=== PATIENT | female | born 1960 ===

== ENCOUNTER 2017-05-14 10:27 | Observation (INO) | payer SELFPAY ==
[2017-05-14] MEDS ORDERED: Sodium Chloride 0.9% 1,000 ML IV ONE ×2 (10:48→11:45)
[2017-05-14] MEDS ORDERED: Sodium Chloride 0.9% 1,000 ML ONE ×2 (11:03→11:55)
[2017-05-14 11:05] LABS: BASO # 0.1 K/uL (0.0-0.2); BASO % 1.1 % (0.0-2.0); EOS # 0.1 K/uL (0.0-0.7); EOS % 1.1 % (0.0-4.0); HEMATOCRIT 40.1 % (34.0-47.0); LYMPH % 16.6 % (20.0-40.0); MEAN CELL VOLUME 79.2 fL (81.0-99.0); MEAN CORPUSCULAR HEMOGLOBIN 26.3 pg (27.0-31.0); MEAN CORPUSCULAR HGB CONC 33.2 g/dL (33.0-37.0); MEAN PLATELET VOLUME 8.1 fL (7.2-11.7); MONO # 0.5 K/uL (0.0-0.8); RED CELL DISTRIBUTION WIDTH 14.1 % (11.5-14.5); WHITE BLOOD COUNT 6.1 K/uL (4.8-10.8)
[2017-05-14 11:13] LABS: CHLORIDE 98 mmol/L (98-107); INR 0.9
[2017-05-14 11:14] LABS: SODIUM 134 mmol/L (132-148)
[2017-05-14 11:16] LABS: ALB/GLOB RATIO 1.3 (1.0-2.1); AST/SGOT 19 U/L (14-36); BILIRUBIN,TOTAL 0.6 mg/dL (0.2-1.3); CARBON DIOXIDE 22 mmol/L (22-30); GFR AFRICAN-AMERICAN > 60; TOTAL PROTEIN 7.5 g/dL (6.3-8.3)
[2017-05-14 11:17] LABS: ALKALINE PHOSPHATASE 159 U/L (38-126); ALT/SGPT 30 U/L (9-52); BLOOD UREA NITROGEN 16 mg/dL (7-17); CALCIUM 9.7 mg/dl (8.6-10.4)
--- NOTE | 2017-05-14 11:25 | RAD ---
PROCEDURE: CHEST RADIOGRAPH, 1 VIEW HISTORY: Chest pain COMPARISON: The lungs are clear. FINDINGS: LUNGS: Clear. PLEURA: No pneumothorax or pleural fluid seen. CARDIOVASCULAR: Normal. OSSEOUS STRUCTURES: No significant abnormalities. VISUALIZED UPPER ABDOMEN: Normal. OTHER FINDINGS: None. IMPRESSION: No active pulmonary disease.
[2017-05-14 11:40] LABS: GLUCOSE,RANDOM 564 mg/dL (65-105)
[2017-05-14] MEDS ORDERED: (Novolin R) Insulin Human Regular 100 units/ml vial IV ONE (11:44)
[2017-05-14] MEDS ORDERED: (Novolin R) Insulin Human Regular 100 units/ml vial ONE (11:55)
--- NOTE | 2017-05-14 11:55 | C.PDOC ---
History Of Present Illness 56-year-old female, PMHx includes Diabetes, is brought to the emergency department by ambulance, with complaints of sub-sternal chest pain, which is described as a cramping sensation, that started this morning after an argument with family member. Patient was given Aspirin and sublingual Nitro on field. Patient notes a Hx of similar episode 2 months ago. States she was admitted to hospital and diagnosed with "ACS." Patient also had a stress done, which was "normal." Patient is currently complaining of a headache. Denies shortness of breath, cough, fever, nausea/vomiting, visual changes, arm weakness/numbness, or any other associated symptoms. No other complaints at this time. Of note, patient is visiting from [place]. Time Seen by Provider: 05/14/17 10:31 Chief Complaint (Nursing): Chest Pain History Per: Patient History/Exam Limitations: no limitations Onset/Duration Of Symptoms: Hrs Current Symptoms Are (Timing): Better Severity: Moderate Associated Symptoms: Other (Headache) Past Medical History Reviewed: Historical Data, Nursing Documentation, Vital Signs Vital Signs: Last Vital Signs Temp 97.7 F 05/14/17 10:37 Pulse 77 05/14/17 13:12 Resp 14 05/14/17 13:12 BP 153/81 H 05/14/17 13:12 Pulse Ox 99 05/14/17 13:56 Surgical History: Appendectomy Family History: States: No Known Family Hx - Social History Hx Alcohol Use: No Hx Substance Use: No - Immunization History Hx Tetanus Toxoid Vaccination: No Hx Influenza Vaccination: No Hx Pneumococcal Vaccination: No Review Of Systems Except As Marked, All Systems Reviewed And Found Negative. Constitutional: Negative for: Fever, Chills Cardiovascular: Positive for: Chest Pain Respiratory: Negative for: Shortness of Breath Gastrointestinal: Negative for: Nausea, Vomiting Musculoskeletal: Negative for: Back Pain Neurological: Positive for: Headache. Negative for: Weakness, Numbness, Dizziness Physical Exam - Physical Exam Appears: Non-toxic, No Acute Distress, Other (Comfortable) Skin: Warm, Dry, No Rash Eye(s): bilateral: Normal Inspection, PERRL, EOMI Nose: Normal Oral Mucosa: Moist Lips: Normal Appearing Neck: Normal ROM Chest: Symmetrical Cardiovascular: Rhythm Regular, No Murmur Respiratory: Normal Breath Sounds, No Accessory Muscle Use Gastrointestinal/Abdominal: Soft, No Tenderness Extremity: Normal ROM Neurological/Psych: Oriented x3 ED Course And Treatment - Laboratory Results Result Diagrams: 05/14/17 11:01 05/14/17 11:01 ECG: Interpreted By Me, Viewed By Me ECG Rhythm: Sinus Rhythm ECG Interpretation: No Acute Changes Rate From EC O2 Sat by Pulse Oximetry: 99 (RA) Pulse Ox Interpretation: Normal - Other Rad CXR X-Ray: Viewed By Me, Read By Radiologist Interpretation: Accession No. : [id number]. Patient Name / ID : ADRIAN DELAFIELD / [id number]. Exam Date : 05/14/2017 10:51:35 ( Approved ). Study Comment : Sex / Age : F / [id number]. Creator : NOREEN PEARSON. Dictator : EMIL MEDRANO MD. Furnace Caretaker : Client Sales And Service Officer : EMIL MEDRANO MD. Approver2 : Report Date : 2016 11:04:00. My Comment : . PROCEDURE: CHEST RADIOGRAPH, 1 VIEW. HISTORY: Chest pain. COMPARISON: The lungs are clear. FINDINGS: LUNGS: Clear. PLEURA: No pneumothorax or pleural fluid seen. CARDIOVASCULAR: Normal. OSSEOUS STRUCTURES: No significant abnormalities. VISUALIZED UPPER ABDOMEN: Normal. OTHER FINDINGS: None. IMPRESSION: No active pulmonary disease. Progress Note: EKG, Bloodwork, Chest X-Ray and fingerstick ordered and reviewed. Patient treated with IVFs and Insulin. - Scribe Statement The provider has reviewed the documentation as recorded by the Scribe Rasta Lee All medical record entries made by the Scribe were at my direction and personally dictated by me. I have reviewed the chart and agree that the record accurately reflects my personal performance of the history, physical exam, medical decision making, and the department course for this patient. I have also personally directed, reviewed, and agree with the discharge instructions and disposition.
--- NOTE | 2017-05-14 13:54 | CP.PCM.HP ---
History of Present Illness - History of Present Illness History of Present Illness: HPI: Patient is a 56 year old female, with PMHx of type two diabetes, who presents to [facility] ED for chest pain. She reports the chest pain that began after she got into an argument with her family member. She describes the pain as an constant, sharp/pressure-like sensation in her chest/epigastric region, that lasts for "5 minutes," and does not radiate. The pain was not made worse with exertion. The pain is not affected by respiration or position. The pain is reproducible with direct pressure to chest wall. She rates the pain as 10/10 on the severity scale at worst this afternoon, and 1-2/10 now. It is made worse by stress, and improved with relaxation. She admits recent stressful verbal altercation with family member. She admits recent history of similar episode, and states she went to the hospital and was diagnosed "with ACS." Outpatient stress test, per patient, was normal. She denies palpitations, shortness of breath, dizziness, abdominal pain, nausea, vomiting, diaphoresis, fever, fatigue, or chills. He denies sick contacts or recent travels. PMHx: Type two diabetes mellitus (20+ years) PSHx: Appendectomy (1999) SHx: tobacco - denies; alcohol - denies ; illicit drugs - denies; retired [employer] ; Lives in [place], here on vacation FHx: Mother - heart disease; Father - DM, HTN Allergies: NKA Meds: Levemir 10 units HS, Unknown oral diabetes med PMD: Clinic in [place], [place] Present on Admission - Present on Admission Any Indicators Present on Admission: No Review of Systems - Constitutional Constitutional: absent: Chills, Fever - EENT Eyes: absent: Change in Vision Ears: absent: Decreased Hearing Nose/Mouth/Throat: absent: Nasal Discharge, Sore Throat - Cardiovascular Cardiovascular: Chest Pain, Chest Pain with Activity, Lightheadedness. absent: Dyspnea, Leg Edema - Respiratory Respiratory: absent: Cough, Dyspnea, Dyspnea on Exertion, Wheezing - Gastrointestinal Gastrointestinal: Heartburn. absent: Nausea, Vomiting - Genitourinary Genitourinary: absent: Difficulty Urinating, Dysuria - Menstruation Menstruation: Post Menopausal - Musculoskeletal Musculoskeletal: Numbness (diabetic neuropathy), Tingling - Integumentary Integumentary: Dry Skin - Neurological Neurological: Burning Sensations (feet from DM neuropathy). absent: Weakness - Psychiatric Psychiatric: absent: Anxiety, Depression Past Patient History - Infectious Disease Hx of Infectious Diseases: None - Past Social History Smoking Status: Never Smoked Alcohol: None - ENDOCRINE/METABOLIC Hx Diabetes Mellitus Type 2: Yes - PSYCHIATRIC Hx Substance Use: No - SURGICAL HISTORY Hx Appendectomy: Yes - ANESTHESIA Hx Anesthesia: Yes Hx Anesthesia Reactions: No Hx Malignant Hyperthermia: No Meds Allergies/Adverse Reactions: Allergies Allergy/AdvReac Type Severity Reaction Status Date / Time No Known Allergies Allergy Verified 05/14/17 10:40 Physical Exam - Constitutional Appears: Non-toxic, No Acute Distress - Head Exam Head Exam: ATRAUMATIC, NORMAL INSPECTION, NORMOCEPHALIC - Eye Exam Eye Exam: EOMI, Normal appearance Pupil Exam: PERRL - ENT Exam ENT Exam: Mucous Membranes Moist - Neck Exam Neck exam: Positive for: Full Rom - Respiratory Exam Respiratory Exam: Clear to Auscultation Bilateral, NORMAL BREATHING PATTERN. absent: Rales, Rhonchi, Wheezes - Cardiovascular Exam Cardiovascular Exam: REGULAR RHYTHM, +S1, +S2 - GI/Abdominal Exam GI & Abdominal Exam: Normal Bowel Sounds, Soft. absent: Tenderness - Extremities Exam Extremities exam: Positive for: normal inspection. Negative for: pedal edema, tenderness - Neurological Exam Neurological exam: Alert, Oriented x3 - Psychiatric Exam Psychiatric exam: Normal Affect, Normal Mood - Skin Skin Exam: Normal Color, Warm Results - Vital Signs Recent Vital Signs: Last Vital Signs Temp 97.7 F 05/14/17 10:37 Pulse 77 05/14/17 13:12 Resp 14 05/14/17 13:12 BP 153/81 H 05/14/17 13:12 Pulse Ox 99 05/14/17 13:20 - Labs Result Diagrams: 05/14/17 11:01 05/14/17 11:01 Labs: Laboratory Results - last 24 hr 05/14/17 05/14/17 05/14/17 11:01 11:01 11:01 WBC 6.1 RBC 5.07 Hgb 13.3 Hct 40.1 MCV 79.2 L MCH 26.3 L MCHC 33.2 RDW 14.1 Plt Count 269 MPV 8.1 Neut % (Auto) 73.2 Lymph % (Auto) 16.6 L [place] % (Auto) 8.0 Eos % (Auto) 1.1 Baso % (Auto) 1.1 Neut # 4.5 Lymph # 1.0 [place] # 0.5 Eos # 0.1 Baso # 0.1 PT 10.3 INR 0.9 APTT 29 Sodium 134 Potassium 4.0 Chloride 98 Carbon Dioxide 22 Anion Gap 17 BUN 16 Creatinine 0.5 L Est GFR ( Amer) > 60 Est GFR (Non-Af Amer) > 60 POC Glucose (mg/dL) Random Glucose 564 H* Calcium 9.7 Total Bilirubin 0.6 AST 19 ALT 30 Alkaline Phosphatase 159 H Total Creatine Kinase 103 CK-MB (Mass) 1.91 Troponin I < 0.0120 Total Protein 7.5 Albumin 4.2 Globulin 3.3 Albumin/Globulin Ratio 1.3 05/14/17 13:11 WBC RBC Hgb Hct MCV MCH MCHC RDW Plt Count MPV Neut % (Auto) Lymph % (Auto) [place] % (Auto) Eos % (Auto) Baso % (Auto) Neut # Lymph # [place] # Eos # Baso # PT INR APTT Sodium Potassium Chloride Carbon Dioxide Anion Gap BUN Creatinine Est GFR ( Amer) Est GFR (Non-Af Amer) POC Glucose (mg/dL) 307 H Random Glucose Calcium Total Bilirubin AST ALT Alkaline Phosphatase Total Creatine Kinase CK-MB (Mass) Troponin I Total Protein Albumin Globulin Albumin/Globulin Ratio Assessment & Plan - Assessment and Plan (Free Text) Assessment: 56 F with CP and multiple risk factors: HTN, HLD, DM. Plan: Chest Pain Observe on Tele DIOGENES negative x 2; f/u 1 additional Q8H EKG: Rate 70 bpm; No ST/T wave changes CXR (05/15/2017): (see full report) Heart score: 3 pts (Positive criteria: Age 45-65, >3 risk factors) ASA 325 mg PO given in ED - ASA 81mg PO Daily Start EMILY: Lisinopril 5 mg PO Daily O2 2L PRN f/u ECHO f/u TSH/free T4, lipid panel, Hgb A1C f/u AM CBC, CMP, Mg, Phos HTN Well controlled Start Lisinopril 5mg PO Daily T2DM Poorly controlled BG; admits not taking insulin recently Accuchecks ISS Restart home med: Levemir 10units HS f/u HgbA1c Headache Tylenol 325mg PO Q6 PRN Prophylaxis SCDs Heparin 5000u Q12H Pepcid 20mg BID
[2017-05-14] MEDS: Sodium Chloride 0.9% 1,000 ML IV SCH (16:55)
[2017-05-14] MEDS: (Novolin R) Insulin Human Regular 100 units/ml vial SC SCH ×2 (17:51→21:44)
[2017-05-14] MEDS ORDERED: Insulin Detemir 100 units/ml Vial (Levemir) SC SCH (22:00)
[2017-05-15] MEDS ORDERED: (Novolin R) Insulin Human Regular 100 units/ml vial SC ONE (02:38)
[2017-05-15 04:13] LABS: CHLORIDE 105 mmol/L (98-107)
[2017-05-15 04:14] LABS: POTASSIUM 3.8 mmol/L (3.6-5.2); SODIUM 137 mmol/L (132-148)
[2017-05-15 04:16] LABS: ALB/GLOB RATIO 1.1 (1.0-2.1); ALKALINE PHOSPHATASE 101 U/L (38-126); ALT/SGPT 27 U/L (9-52); AST/SGOT 19 U/L (14-36); BILIRUBIN,TOTAL 0.4 mg/dL (0.2-1.3); BLOOD UREA NITROGEN 12 mg/dL (7-17); CARBON DIOXIDE 24 mmol/L (22-30); CHOLESTEROL 187 mg/dL (0-199); GFR AFRICAN-AMERICAN > 60; GLUCOSE,RANDOM 319 mg/dL (65-105); PHOSPHOROUS 3.6 mg/dL (2.5-4.5); TOTAL PROTEIN 6.5 g/dL (6.3-8.3)
[2017-05-15 04:17] LABS: MAGNESIUM 1.8 mg/dL (1.6-2.3)
[2017-05-15 04:47] LABS: THYROID STIMULATING HORMONE 1.43 mIU/L (0.46-4.68)
[2017-05-15] MEDS: Sodium Chloride 0.9% 1,000 ML IV SCH (06:45)
[2017-05-15] MEDS: (Novolin R) Insulin Human Regular 100 units/ml vial SC SCH ×3 (08:15→17:23)
[2017-05-15 09:12] LABS: BASO % 0.1 % (0.0-2.0); HEMATOCRIT 35.1 % (34.0-47.0); LYMPH # 0.5 K/uL (1.0-4.3); LYMPH % 17.6 % (20.0-40.0); MEAN CORPUSCULAR HEMOGLOBIN 27.9 pg (27.0-31.0); MEAN CORPUSCULAR HGB CONC 32.3 g/dL (33.0-37.0); MEAN PLATELET VOLUME 7.8 fL (7.2-11.7); MONO # 0.1 K/uL (0.0-0.8); MONO % 4.5 % (0.0-10.0); RED CELL DISTRIBUTION WIDTH 21.2 % (11.5-14.5)
[2017-05-15 09:13] LABS: WHITE BLOOD COUNT 2.9 K/uL (4.8-10.8)
[2017-05-15 09:14] LABS: MEAN CELL VOLUME 86.3 fL (81.0-99.0)
--- NOTE | 2017-05-15 15:51 | CP.PCM.DIS ---
Provider - Provider Date of Admission: 05/14/17 13:29 Attending physician: Keyona Travis DO Time Spent in preparation of Discharge (in minutes): 29 Hospital Course - Lab Results Lab Results: Most Recent Lab Values WBC 2.9 K/uL (4.8-10.8) L D 05/15/17 08:50 RBC 4.06 Mil/uL (3.80-5.20) 05/15/17 08:50 Hgb 11.3 g/dL (11.0-16.0) D 05/15/17 08:50 Hct 35.1 % (34.0-47.0) 05/15/17 08:50 MCV 86.3 fL (81.0-99.0) D 05/15/17 08:50 MCH 27.9 pg (27.0-31.0) 05/15/17 08:50 MCHC 32.3 g/dL (33.0-37.0) L 05/15/17 08:50 RDW 21.2 % (11.5-14.5) H 05/15/17 08:50 Plt Count 255 K/uL (130-400) 05/15/17 08:50 MPV 7.8 fL (7.2-11.7) 05/15/17 08:50 Neut % (Auto) 77.8 % (50.0-75.0) H 05/15/17 08:50 Lymph % (Auto) 17.6 % (20.0-40.0) L 05/15/17 08:50 [place] % (Auto) 4.5 % (0.0-10.0) 05/15/17 08:50 Eos % (Auto) 0.0 % (0.0-4.0) 05/15/17 08:50 Baso % (Auto) 0.1 % (0.0-2.0) 05/15/17 08:50 Neut # 2.2 K/uL (1.8-7.0) 05/15/17 08:50 Lymph # 0.5 K/uL (1.0-4.3) L 05/15/17 08:50 [place] # 0.1 K/uL (0.0-0.8) 05/15/17 08:50 Eos # 0.0 K/uL (0.0-0.7) 05/15/17 08:50 Baso # 0.0 K/uL (0.0-0.2) 05/15/17 08:50 PT 10.3 SECONDS (9.7-12.2) 05/14/17 11:01 INR 0.9 05/14/17 11:01 APTT 29 SECONDS (21-34) 05/14/17 11:01 Sodium 137 mmol/L (132-148) 05/15/17 04:02 Potassium 3.8 mmol/L (3.6-5.2) 05/15/17 04:02 Chloride 105 mmol/L (98-107) 05/15/17 04:02 Carbon Dioxide 24 mmol/L (22-30) 05/15/17 04:02 Anion Gap 11 (10-20) 05/15/17 04:02 BUN 12 mg/dL (7-17) 05/15/17 04:02 Creatinine 0.5 MG/DL (0.7-1.2) L 05/15/17 04:02 Est GFR ( Amer) > 60 05/15/17 04:02 Est GFR (Non-Af Amer) > 60 05/15/17 04:02 POC Glucose (mg/dL) 246 mg/dL (65-110) H 05/15/17 11:27 Random Glucose 319 mg/dL (65-105) H 05/15/17 04:02 Calcium 9.0 mg/dl (8.6-10.4) 05/15/17 04:02 Phosphorus 3.6 mg/dL (2.5-4.5) 05/15/17 04:02 Magnesium 1.8 mg/dL (1.6-2.3) 05/15/17 04:02 Total Bilirubin 0.4 mg/dL (0.2-1.3) 05/15/17 04:02 AST 19 U/L (14-36) 05/15/17 04:02 ALT 27 U/L (9-52) 05/15/17 04:02 Alkaline Phosphatase 101 U/L (38-126) 05/15/17 04:02 Total Creatine Kinase 61 U/L (30-135) 05/15/17 04:02 CK-MB (Mass) 1.16 ng/mL (0.0-3.38) 05/15/17 04:02 Troponin I < 0.0120 ng/mL (0.00-0.120) 05/14/17 11:01 Troponin I, Quant < 0.0120 ng/mL (0.00-0.120) 05/15/17 04:02 Total Protein 6.5 g/dL (6.3-8.3) 05/15/17 04:02 Albumin 3.4 g/dL (3.5-5.0) L 05/15/17 04:02 Globulin 3.1 gm/dL (2.2-3.9) 05/15/17 04:02 Albumin/Globulin Ratio 1.1 (1.0-2.1) 05/15/17 04:02 Triglycerides 186 mg/dL (0-149) H 05/15/17 04:02 Cholesterol 187 mg/dL (0-199) 05/15/17 04:02 LDL Cholesterol Direct 125 mg/dL (0-129) 05/15/17 04:02 HDL Cholesterol 38 mg/dL (30-70) 05/15/17 04:02 Free T4 0.78 ng/dL (0.78-2.19) 05/15/17 08:50 TSH 3rd Generation 1.43 mIU/L (0.46-4.68) 05/15/17 04:02 - Hospital Course Hospital Course: This is a very nice 56-year-old female who came to [facility] due to chest pain lasted for about 5-6 minutes after she got into a very heated argument with family members. The patient explains to me that she is from [place] and has been on a road trip for the past 9 days. She has a past medical history including diabetes, hypertension. While getting into an argument with family members she developed this chest pain is described as a sharp pressure-like sensation near the epigastric lower chest area. The patient had 3 sets of negative cardiac enzymes, and also 3 EKGs done overnight reviewed the EKGs on admission as well as the morning and they are all normal sinus rhythm at about 60-70 beats per on physical exam she was not under any acute distress, she was able to walk with me to the nurses station and and I reviewed her telemetry reading and it was in the 80s normal sinus rhythm. She denied having chest pain, palpitations, shortness of breath while walking with me. Per review of the telemetry she didn't have any episodes of V. tach or arrhythmias. She did report having some ringing in her ears. Bothering her with her to try her on some oral meclizine to see if this helps. She was able to walk even with this ringing in her ears. So I explained to her that we will send her for a prescription for meclizine she also needs a refill on her Levemir flex pen so we gave her a prescription for this as well we explained to her that she should go back to taking her usual medications as before. From the resident HPI..." Patient is a 56 year old female, with PMHx of type two diabetes, who presents to [facility] ED for chest pain. She reports the chest pain that began after she got into an argument with her family member. She describes the pain as an constant, sharp/pressure-like sensation in her chest/epigastric region, that lasts for "5 minutes," and does not radiate. The pain was not made worse with exertion. The pain is not affected by respiration or position. The pain is reproducible with direct pressure to chest wall. She rates the pain as 10/10 on the severity scale at worst this afternoon, and 1-2/10 now. It is made worse by stress, and improved with relaxation. She admits recent stressful verbal altercation with family member. She admits recent history of similar episode, and states she went to the hospital and was diagnosed "with ACS." Outpatient stress test, per patient, was normal. She denies palpitations, shortness of breath, dizziness, abdominal pain, nausea, vomiting, diaphoresis, fever, fatigue, or chills. He denies sick contacts or recent " RX Leveimir RX Meclizine Please continue your previous medications Discharge Exam - Head Exam Head Exam: ATRAUMATIC, NORMAL INSPECTION, NORMOCEPHALIC - Eye Exam Eye Exam: EOMI, Normal appearance - ENT Exam ENT Exam: Mucous Membranes Moist - Respiratory Exam Respiratory Exam: Clear to PA & Lateral, NORMAL BREATHING PATTERN, UNREMARKABLE - Cardiovascular Exam Cardiovascular Exam: REGULAR RHYTHM - GI/Abdominal Exam GI & Abdominal Exam: Normal Bowel Sounds, Unremarkable - Neurological Exam Neurological exam: Alert, CN II-XII Intact, Normal Gait, Oriented x3 - Psychiatric Exam Psychiatric exam: Normal Affect, Normal Mood - Skin Skin Exam: Normal Color, Warm Discharge Plan - Discharge Medications Prescriptions: Insulin Detemir [Levemir] 10 unit SC BID #1 vial Meclizine [Meclizine*] 50 mg PO BID #14 tab - Follow Up Plan Condition: GOOD Disposition: HOME/ ROUTINE Additional Instructions: Patient is stable for discharge home per Dr. Muniz. Patient is being given prescription for meclizine 50mg twice a day for one week. Patient is also being given prescription for levemir flex pen. Patient is to follow up with her PMD when she returns home to [place]. Patient is to return to the ED if her symptoms reoccur or worsen. This was explained to the patient who understands and agrees.
[2017-05-15 16:44] VITALS: BP 137/75; PULSE 80; RESP 20; TEMP 98.5; O2SAT 97
--- NOTE | 2017-05-15 16:56 | CARD ---
APPROVED REPORT EXAM: Two-dimensional and M-mode echocardiogram with Doppler and color Doppler. Other Information Quality : GoodRhythm : NSR INDICATION Chest Pain ACS RISK FACTORS Hypertension M-Mode DIMENSIONS RVDd1.04 (2.1-3.2cm)Left Atrium (MM)3.81 (2.5-4.0cm) IVSd0.65 (0.7-1.1cm)Aortic Root3.25 (2.2-3.7cm) LVDd4.65 (4.0-5.6cm)Aortic Cusp Exc.1.76 (1.5-2.0cm) PWd0.72 (0.7-1.1cm)FS (%) 38 % LVDs2.90 (2.0-3.8cm)LVEF (%)68 (>50%) Aortic Valve AoV Peak Euvzkalk867.4cm/Adin Peak GR.8mmHg Mitral Valve MV E Tamyrpqb81.3cm/sMV A Mhnuawxf011.8cm/sE/A ratio0.9 TDI E/Lateral E'0.0E/Medial E'0.0 Tricuspid Valve TR Peak Ukkgexhb172zk/sTR Peak Gr.65vsFyIEJK31gxUz LEFT VENTRICLE The left ventricle is normal size. There is normal left ventricular wall thickness. The left ventricular function is normal. The left ventricular ejection fraction is within the normal range. There is normal LV segmental wall motion. Transmitral Doppler flow pattern is abnormal. RIGHT VENTRICLE The right ventricle is normal size. ATRIA The left atrium size is normal. The right atrium size is normal. AORTIC VALVE The aortic valve is normal in structure. MITRAL VALVE Mitral regurgitation is trace. TRICUSPID VALVE There is mild tricuspid regurgitation. <Conclusion> Normal LV systolic function. Diastolic dysfunction. Trace MR. Mild TR. Normal chambe rsize.
--- NOTE | 2017-05-15 19:22 | CP.PCM.CON ---
History of Present Illness - History of Present Illness History of Present Illness: PT. WAS DISCHARGED BEFORE THE CARDIOLOGY CONSULT COULD BE DONE CHART REVIEWED TNI,EKG ARE NORMAL ECHO NO WALL MOTION ABN. MILD MR WILL NEED OUT PT STRESS TEST Past Patient History - Infectious Disease Hx of Infectious Diseases: None - Past Medical History & Family History Past Medical History?: Yes - Past Social History Smoking Status: Never Smoked Alcohol: None - CARDIAC Hx Cardiac Disorders: No - PULMONARY Hx Respiratory Disorders: No - NEUROLOGICAL Hx Neurological Disorder: No - HEENT Hx HEENT Problems: No - RENAL Hx Chronic Kidney Disease: No - ENDOCRINE/METABOLIC Hx Diabetes Mellitus Type 2: Yes - HEMATOLOGICAL/ONCOLOGICAL Hx Blood Disorders: No - INTEGUMENTARY Hx Dermatological Problems: No - MUSCULOSKELETAL/RHEUMATOLOGICAL Hx Falls: No - GASTROINTESTINAL Hx Gastrointestinal Disorders: No - GENITOURINARY/GYNECOLOGICAL Hx Genitourinary Disorders: No - PSYCHIATRIC Hx Substance Use: No - SURGICAL HISTORY Hx Appendectomy: Yes - ANESTHESIA Hx Anesthesia: Yes Hx Anesthesia Reactions: No Hx Malignant Hyperthermia: No Meds Home Medications: Home Medication List Medication Instructions Recorded Confirmed Type Insulin Detemir [Levemir] 10 unit SC BID #1 vial 05/15/17 Rx Meclizine [Meclizine*] 50 mg PO BID #14 tab 05/15/17 Rx Allergies/Adverse Reactions: Allergies Allergy/AdvReac Type Severity Reaction Status Date / Time No Known Allergies Allergy Verified 05/14/17 10:40 Results - Vital Signs Recent Vital Signs: Last Vital Signs Temp 98.5 F 05/15/17 16:43 Pulse 80 05/15/17 16:43 Resp 20 05/15/17 16:43 BP 137/75 05/15/17 16:43 Pulse Ox 97 05/15/17 16:43 - Labs Result Diagrams: 05/15/17 08:50 05/15/17 04:02 Labs: Laboratory Results - last 24 hr 05/14/17 05/14/17 05/15/17 19:49 21:16 02:06 WBC RBC Hgb Hct MCV MCH MCHC RDW Plt Count MPV Neut % (Auto) Lymph % (Auto) [place] % (Auto) Eos % (Auto) Baso % (Auto) Neut # Lymph # [place] # Eos # Baso # Sodium Potassium Chloride Carbon Dioxide Anion Gap BUN Creatinine Est GFR ( Amer) Est GFR (Non-Af Amer) POC Glucose (mg/dL) 308 H 383 H Random Glucose Calcium Phosphorus Magnesium Total Bilirubin AST ALT Alkaline Phosphatase Total Creatine Kinase 76 CK-MB (Mass) 1.57 Troponin I, Quant 0.0140 Total Protein Albumin Globulin Albumin/Globulin Ratio Triglycerides Cholesterol LDL Cholesterol Direct HDL Cholesterol Free T4 TSH 3rd Generation 05/15/17 05/15/17 05/15/17 04:02 06:36 08:50 WBC 2.9 L D RBC 4.06 Hgb 11.3 D Hct 35.1 MCV 86.3 D MCH 27.9 MCHC 32.3 L RDW 21.2 H Plt Count 255 MPV 7.8 Neut % (Auto) 77.8 H Lymph % (Auto) 17.6 L [place] % (Auto) 4.5 Eos % (Auto) 0.0 Baso % (Auto) 0.1 Neut # 2.2 Lymph # 0.5 L [place] # 0.1 Eos # 0.0 Baso # 0.0 Sodium 137 Potassium 3.8 Chloride 105 Carbon Dioxide 24 Anion Gap 11 BUN 12 Creatinine 0.5 L Est GFR ( Amer) > 60 Est GFR (Non-Af Amer) > 60 POC Glucose (mg/dL) 259 H Random Glucose 319 H Calcium 9.0 Phosphorus 3.6 Magnesium 1.8 Total Bilirubin 0.4 AST 19 ALT 27 Alkaline Phosphatase 101 Total Creatine Kinase 61 CK-MB (Mass) 1.16 Troponin I, Quant < 0.0120 Total Protein 6.5 Albumin 3.4 L Globulin 3.1 Albumin/Globulin Ratio 1.1 Triglycerides 186 H Cholesterol 187 LDL Cholesterol Direct 125 HDL Cholesterol 38 Free T4 TSH 3rd Generation 1.43 05/15/17 05/15/17 05/15/17 08:50 11:27 17:10 WBC RBC Hgb Hct MCV MCH MCHC RDW Plt Count MPV Neut % (Auto) Lymph % (Auto) [place] % (Auto) Eos % (Auto) Baso % (Auto) Neut # Lymph # [place] # Eos # Baso # Sodium Potassium Chloride Carbon Dioxide Anion Gap BUN Creatinine Est GFR ( Amer) Est GFR (Non-Af Amer) POC Glucose (mg/dL) 246 H 321 H Random Glucose Calcium Phosphorus Magnesium Total Bilirubin AST ALT Alkaline Phosphatase Total Creatine Kinase CK-MB (Mass) Troponin I, Quant Total Protein Albumin Globulin Albumin/Globulin Ratio Triglycerides Cholesterol LDL Cholesterol Direct HDL Cholesterol Free T4 0.78 TSH 3rd Generation
== END 2017-05-15 17:50 | disposition home or self-care (01) ==
LOC: C.ER 10:27 → C.9E 13:29 → C.6T 14:48
PROVIDERS: ADMIT Hospitalist; ATTEND Hospitalist
DX: R07.9 Chest pain, unspecified (principal); E11.9 Type 2 diabetes mellitus without complications; I10 Essential (primary) hypertension
CPT/HCPCS: 36415; 71010; 80053; 80061; 82550; 82553; 82948; 83036; 83735; 84100; 84439; 84443; 84484; 85025; 85610; 85730; 93306; 96360; 99285; G0378; J1644; J7040